=== PATIENT | male | born 1965 | race American Indian/Alaskan Native ===

== ENCOUNTER 2018-07-10 18:18 | Emergency (ER) | payer MEDICAID, OTHER ==
[2018-07-10 18:51] LABS: Basophils % (Auto) 0.6 % (0.0-1.8); Eosinophils # (Auto) 0.1 K/mm3 (0.0-0.4); Eosinophils % (Auto) 1.6 % (0.0-4.3); Hemoglobin 13.7 gm/dl (11.8-15.2); Lymphocytes # (Auto) 1.5 K/mm3 (1.2-5.4); Lymphocytes % (Auto) 40.9 % (13.4-35.0); Mean Corpuscular HGB Conc 34 % (32-34); Mean Corpuscular Volume 91 fl (84-94); Monocytes # (Auto) 0.3 K/mm3 (0.0-0.8); Monocytes % (Auto) 9.6 % (0.0-7.3); Platelet Count 289 K/mm3 (140-440); Red Blood Count 4.51 M/mm3 (3.65-5.03); Red Cell Distribution Width 13.5 % (13.2-15.2)
[2018-07-10 19:03] LABS: BUN/Creatinine Ratio 9; Blood Urea Nitrogen 8 mg/dL (9-20); Calcium 9.3 mg/dL (8.4-10.2); Hemolysis Index 17
[2018-07-10] MEDS ORDERED: KEPPRA 1,000 MG/NS 0.75% 100ML 1,000 MG/100 ML BAG IV ONE (19:19)
--- NOTE | 2018-07-10 19:23 | Emergency Department Report ---
ED Altered Mental Status HPI - General Chief Complaint: Medical Clearance Stated Complaint: POSSIBLE SEIZURE Time Seen by Provider: 07/10/18 18:38 Source: EMS Mode of arrival: Ambulatory Limitations: Other - History of Present Illness Initial Comments: Mr. Bee is a 53-year-old male who was brought by ambulance. According to EMS report given to ED nurse, he was found laying on the ground. He does have a history of seizures. Mr. Bee admits that he was confused. He stated that he was evaluated at the [facility] recently. He has been evaluated by "Mr. Estevez". He was in a group therapy. He states that the words going into his ear are different from what is coming out of his mouth. He denies any weakness. He denies any numbness. Denies suicidal or homicidal ideation. Does have a history of depression. He states that he is working on his sobriety. However he denies drug or alcohol abuse. MD Complaint: confusion -: unknown Severity: mild Context: unknown Associated Symptoms: denies other symptoms - Related Data Home Medications Medication Instructions Recorded Confirmed Last Taken Unobtainable 07/10/18 07/10/18 Unknown Allergies Allergy/AdvReac Type Severity Reaction Status Date / Time shrimp Allergy Hives Verified 07/10/18 18:21 omega 3 oil Allergy Hives Uncoded 07/10/18 18:21 ED Review of Systems ROS: Stated complaint: POSSIBLE SEIZURE Other details as noted in HPI Comment: All other systems reviewed and negative Constitutional: denies: fever, malaise Respiratory: denies: cough ED Past Medical Hx - Past Medical History Previous Medical History?: Yes Hx Seizures: Yes Hx Psychiatric Treatment: Yes (DEPRESSION) - Surgical History Additional Surgical History: PT DOESNT KNOW - Social History Smoking Status: Never Smoker Substance Use Type: None Other Social History: Lives with uncle - Medications Home Medications: Home Medications Medication Instructions Recorded Confirmed Last Taken Type Unobtainable 07/10/18 07/10/18 Unknown History ED Physical Exam - General Limitations: Other General appearance: alert, in no apparent distress, other (disheveled dirty clothing, holding Bible) - Head Head exam: Present: atraumatic, normocephalic - Eye Eye exam: Present: normal appearance - ENT ENT exam: Present: mucous membranes moist - Neck Neck exam: Present: normal inspection, full ROM - Respiratory Respiratory exam: Present: normal lung sounds bilaterally. Absent: respiratory distress, wheezes, rales, rhonchi - Cardiovascular Cardiovascular Exam: Present: regular rate, normal rhythm, normal heart sounds. Absent: systolic murmur, diastolic murmur, rubs, gallop - GI/Abdominal GI/Abdominal exam: Present: soft, normal bowel sounds. Absent: distended, tenderness, guarding - Rectal Rectal exam: Present: deferred - Extremities Exam Extremities exam: Present: normal inspection - Back Exam Back exam: Present: normal inspection - Neurological Exam Neurological exam: Present: alert, oriented X3, CN II-XII intact, normal gait. Absent: motor sensory deficit - Psychiatric Psychiatric exam: Present: normal affect, normal mood - Skin Skin exam: Present: warm, dry, intact, normal color. Absent: rash ED Course Vital Signs 07/10/18 07/10/18 18:20 19:30 Temperature 98.5 F 98.3 F Pulse Rate 80 65 Respiratory 18 16 Rate Blood Pressure 114/53 160/70 Blood Pressure 160/70 [Left] O2 Sat by Pulse 98 100 Oximetry - Lab Data Result diagrams: 07/10/18 18:30 07/10/18 18:30 Lab Results 07/10/18 07/10/18 07/10/18 Range/Units 18:30 18:30 18:30 WBC (4.5-11.0) K/mm3 RBC (3.65-5.03) M/mm3 Hgb (11.8-15.2) gm/dl Hct (35.5-45.6) % MCV (84-94) fl MCH (28-32) pg MCHC (32-34) % RDW (13.2-15.2) % Plt Count (140-440) K/mm3 Lymph % (Auto) (13.4-35.0) % [place] % (Auto) (0.0-7.3) % Eos % (Auto) (0.0-4.3) % Baso % (Auto) (0.0-1.8) % Lymph # (1.2-5.4) K/mm3 [place] # (0.0-0.8) K/mm3 Eos # (0.0-0.4) K/mm3 Baso # (0.0-0.1) K/mm3 Seg Neutrophils % (40.0-70.0) % Seg Neutrophils # (1.8-7.7) K/mm3 Sodium 139 (137-145) mmol/L Potassium 3.9 (3.6-5.0) mmol/L Chloride 100.5 (98-107) mmol/L Carbon Dioxide 26 (22-30) mmol/L Anion Gap 16 mmol/L BUN 8 L (9-20) mg/dL Creatinine 0.9 (0.8-1.5) mg/dL Estimated GFR > 60 ml/min BUN/Creatinine Ratio 9 % Glucose 81 (75-100) mg/dL Calcium 9.3 (8.4-10.2) mg/dL Salicylates < 0.3 L (2.8-20.0) mg/dL Acetaminophen < 5.0 L (10.0-30.0) ug/mL Plasma/Serum Alcohol (0-0.07) % 07/10/18 07/10/18 Range/Units 18:30 18:30 WBC 3.6 L (4.5-11.0) K/mm3 RBC 4.51 (3.65-5.03) M/mm3 Hgb 13.7 (11.8-15.2) gm/dl Hct 41.0 (35.5-45.6) % MCV 91 (84-94) fl MCH 31 (28-32) pg MCHC 34 (32-34) % RDW 13.5 (13.2-15.2) % Plt Count 289 (140-440) K/mm3 Lymph % (Auto) 40.9 H (13.4-35.0) % [place] % (Auto) 9.6 H (0.0-7.3) % Eos % (Auto) 1.6 (0.0-4.3) % Baso % (Auto) 0.6 (0.0-1.8) % Lymph # 1.5 (1.2-5.4) K/mm3 [place] # 0.3 (0.0-0.8) K/mm3 Eos # 0.1 (0.0-0.4) K/mm3 Baso # 0.0 (0.0-0.1) K/mm3 Seg Neutrophils % 47.3 (40.0-70.0) % Seg Neutrophils # 1.7 L (1.8-7.7) K/mm3 Sodium (137-145) mmol/L Potassium (3.6-5.0) mmol/L Chloride (98-107) mmol/L Carbon Dioxide (22-30) mmol/L Anion Gap mmol/L BUN (9-20) mg/dL Creatinine (0.8-1.5) mg/dL Estimated GFR ml/min BUN/Creatinine Ratio % Glucose (75-100) mg/dL Calcium (8.4-10.2) mg/dL Salicylates (2.8-20.0) mg/dL Acetaminophen (10.0-30.0) ug/mL Plasma/Serum Alcohol < 0.01 (0-0.07) % - Radiology Data Radiology results: report reviewed CT head without acute process - Medical Decision Making Mr. Bee presents with disorganized thought pattern and tangential speech without dysarthria or aphasia. No evidence of CVA on clinical exam. I do not suspect postictal state. I do suspect exacerbation of mental illness with reported treatment at the [facility]. With normal workup including serum studies CBC chemistry serum toxicology, CT head, Mr. Bee is medically clear for psychiatric care. I do not detect medical condition which will account for his current presentation. He did receive IV Keppra for previous history of seizure. I highly appreciate the assistance of risk assessor who agreed that Mr. Bee is currently stable for discharge. He did not admit to being evaluated at [facility] today but was unable to afford his medications. Dc'd home to f/u at [facility]. Critical care attestation.: If time is entered above; I have spent that time in minutes in the direct care of this critically ill patient, excluding procedure time. ED Disposition Clinical Impression: Mental health disorder, History of seizure Disposition: DC-01 TO HOME OR SELFCARE Is pt being admited?: No Does the pt Need Aspirin: No Condition: Stable Additional Instructions: Please follow up at the [facility] as discussed. Referrals: [facility] Mental Health [Outside] - [place]
--- NOTE | 2018-07-10 19:53 | Cat Scan Report ---
FINAL REPORT EXAM: CT HEAD/BRAIN WO CON HISTORY: ams hx of sz TECHNIQUE: CT was performed from the foramen magnum through the vertex in the axial plane without th e use of intravenous contrast. PRIORS: None. FINDINGS: The saab/white matter attenuation pattern is normal. There is no mass lesion or mass effect. There ar e no abnormal extra-axial fluid collections. There is no evidence of acute intracranial hemorrhage or infarct. The ventricles are of normal size and configuration. The skull and orbits are unremarkable . There is moderate patchy mucosal thickening in the right ethmoid air cells. IMPRESSION: Normal CT of the head.
[2018-07-10 21:10] VITALS: BP 160/70
== END 2018-07-11 00:09 | disposition home or self-care (01) ==
LOC: ED 18:18
DX: F32.9 Major depressive disorder, single episode, unspecified (principal); R56.9 Unspecified convulsions; R41.0 Disorientation, unspecified; Z91.013 Allergy to seafood; Z91.018 Allergy to other foods
CPT/HCPCS: 36415; 70450; 80048; 85025; 96365; 96366; 99285; G0480; J1953; 80320

== ENCOUNTER 2018-08-13 09:56 | Emergency (ER) | payer SELFPAY | END 2018-08-13 09:59 | disposition left against medical advice (07) | LOC: ED 09:56 | DX: Z53.21 Procedure and treatment not carried out due to patient leaving prior to being seen by health care provider (principal) ==

== ENCOUNTER 2018-10-08 10:10 | Emergency (ER) | payer MEDICAID | END 2018-10-08 13:53 | LOC: ED 10:10 → MERGE 10:10 → ED 13:53 | DX: Z00.8 Encounter for other general examination (principal); Z53.21 Procedure and treatment not carried out due to patient leaving prior to being seen by health care provider ==

== ENCOUNTER 2018-11-03 23:58 | Emergency (ER) | payer MEDICAID ==
[2018-11-04 00:21] VITALS: BP 128/69
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
== END 2018-11-04 02:49 | disposition home or self-care (01) ==
LOC: ED 23:58 → MERGE 23:58 → ED 11-04 02:49
DX: M19.042 Primary osteoarthritis, left hand (principal); M19.041 Primary osteoarthritis, right hand; G89.29 Other chronic pain; I10 Essential (primary) hypertension; I25.2 Old myocardial infarction; E11.9 Type 2 diabetes mellitus without complications; J45.909 Unspecified asthma, uncomplicated; Z86.73 Personal history of transient ischemic attack (TIA), and cerebral infarction without residual deficits; Z88.0 Allergy status to penicillin; Z79.899 Other long term (current) drug therapy
CPT/HCPCS: 99282

== ENCOUNTER 2018-11-20 05:02 | Emergency (ER) | payer MEDICAID ==
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
[2018-11-20 09:21] LABS: Basophils % (Auto) 0.6 % (0.0-1.8); Eosinophils # (Auto) 0.1 K/mm3 (0.0-0.4); Eosinophils % (Auto) 1.9 % (0.0-4.3); Hematocrit 39.3 % (35.5-45.6); Hemoglobin 13.4 gm/dl (11.8-15.2); Lymphocytes # (Auto) 1.2 K/mm3 (1.2-5.4); Lymphocytes % (Auto) 38.7 % (13.4-35.0); Mean Corpuscular HGB Conc 34 % (32-34); Mean Corpuscular Volume 92 fl (84-94); Monocytes # (Auto) 0.3 K/mm3 (0.0-0.8); Platelet Count 236 K/mm3 (140-440); Red Blood Count 4.29 M/mm3 (3.65-5.03); Red Cell Distribution Width 14.2 % (13.2-15.2)
[2018-11-20 09:52] LABS: Alanine Aminotransferase 29 units/L (7-56); BUN/Creatinine Ratio 13; Blood Urea Nitrogen 12 mg/dL (9-20); Calcium 9.1 mg/dL (8.4-10.2); Hemolysis Index 14
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
[2018-11-20] MEDS ORDERED: INVEGA PO SCH (14:00)
[2018-11-20] MEDS ORDERED: NACL 0.9% 1000 ML 1,000 ML IV ONE (14:31)
[2018-11-20 16:50] VITALS: BP 113/61
== END 2018-11-20 17:21 ==
LOC: ED 05:02 → MERGE 05:02 → EEVIPCON 05:02 → ED 17:05
DX: F23 Brief psychotic disorder (principal); R74.8 Abnormal levels of other serum enzymes; F41.9 Anxiety disorder, unspecified; I10 Essential (primary) hypertension; F31.9 Bipolar disorder, unspecified; E11.9 Type 2 diabetes mellitus without complications; J45.909 Unspecified asthma, uncomplicated; Z88.0 Allergy status to penicillin; Z79.1 Long term (current) use of non-steroidal anti-inflammatories (NSAID); Z79.899 Other long term (current) drug therapy; Z86.73 Personal history of transient ischemic attack (TIA), and cerebral infarction without residual deficits
CPT/HCPCS: 36415; 80053; 82550; 82962; 85025; 99285; G0480; J7030; 80320

== ENCOUNTER 2018-11-20 14:26 | Inpatient (IN) | payer MEDICAID ==
[2018-11-20] MEDS ORDERED: ATIVAN IM PRN (18:48)
[2018-11-20] MEDS ORDERED: HALDOL IM PRN (18:51)
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
[2018-11-21] MEDS ORDERED: THORAZINE PO PRN (08:48)
[2018-11-21 09:17] LABS: Chol/HDL Ratio 3.4 %
[2018-11-21] MEDS ORDERED: NON-FORMULARY (Cholecalciferol (Vitamin D3) [Vitamin D3] 1,000 UNIT) PO SCH (10:00)
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
[2018-11-21] MEDS: HALDOL PO SCH ×2 (11:08→22:52)
[2018-11-21] MEDS: VITAMIN D3 PO SCH (11:08)
[2018-11-21] MEDS ORDERED: TYLENOL PO PRN (19:18)
[2018-11-21] MEDS: THORAZINE PO SCH (22:52)
[2018-11-22] MEDS: VITAMIN D3 PO SCH (09:12)
[2018-11-22] MEDS: HALDOL PO SCH (09:12)
--- NOTE | 2018-11-22 10:13 | Progress Note ---
Subjective Date of service: 11/22/18 Principal diagnosis: Paranoid Schizophrenia Subjective Comment: The patient is paranoid, disorganized and unable to care for self. He believes that he is being chased and shot at by people unknown to him. He is compliant with meds and denies side effects. Objective - Criteria for Continued Treatment Criteria for Continued Treatment: Improving Level of Functioning, Improving Treatment / Medication Compliance, Confronting Denial of Illness, Stablizing Level of Functioning, Improving Emotional/Socia, Decreasing Frequency of Hospitalization - Mental Status Mental Status: Alert - Objective Observation Participation Level: Moderate Assessment and Plan - Patient Problems (1) Paranoid schizophrenia Current Visit: Yes Status: Acute Plan to address problem: Patient will be admitted for inpatient psychiatric evaluation, medication adjustment and close monitoring The patient's behavior, mood, sleep and appetite will be closely monitored. Patient will be enrolled in individual and group therapeutic sessions and encouraged to attend. Patient will be provided with a safe and structured environment. Patient's physical health needs will be addressed by the Hospitalist. Social Assessment will be completed and the Security Orderly will work with patient and family to ensure a suitable and safe disposition Medication adjustment will be made as clinically indicated Continue Haldol 5mg bid. Haldol Decanoate Continue Thorazine 100mg qhs The patient agreed on the treatment plan, understood the risk, benefit, alternative treatment, potential consequence of no treatment, and gave informed consent.
[2018-11-22] MEDS: THORAZINE PO SCH ×2 (21:54→21:56)
[2018-11-23] MEDS: HALDOL PO SCH ×3 (00:36→21:51)
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
[2018-11-23] MEDS: VISINE-A OU PRN (12:11)
[2018-11-23] MEDS: VITAMIN D3 PO SCH (12:14)
[2018-11-23] MEDS: THORAZINE PO SCH (21:52)
[2018-11-24] MEDS: VISINE-A OU PRN (10:48)
[2018-11-24] MEDS: VITAMIN D3 PO SCH (10:49)
[2018-11-24] MEDS: COGENTIN PO SCH ×2 (10:54→21:40)
[2018-11-24] MEDS: HALDOL PO SCH (10:55)
[2018-11-24] MEDS: IBUPROFEN PO PRN ×2 (11:09→17:16)
--- NOTE | 2018-11-24 19:17 | Progress Note ---
Subjective Date of service: 11/24/18 Principal diagnosis: Paranoid Schizophrenia Subjective Comment: The patient is improving. He denies being paranoid, suicidal or homicidal. He denies hallucinations. Nursing staff reports that he is more interactive with staffs and other patients. He is complains of stiff neck which started last night. Objective - Criteria for Continued Treatment Criteria for Continued Treatment: Improving Level of Functioning, Stablizing Level of Functioning, Improving Emotional/Socia - Mental Status Mental Status: Alert - Objective Observation Participation Level: Full Assessment and Plan - Patient Problems (1) Paranoid schizophrenia Current Visit: Yes Status: Acute Plan to address problem: Patient will be admitted for inpatient psychiatric evaluation, medication adjustment and close monitoring The patient's behavior, mood, sleep and appetite will be closely monitored. Patient will be enrolled in individual and group therapeutic sessions and encouraged to attend. Patient will be provided with a safe and structured environment. Patient's physical health needs will be addressed by the Hospitalist. Social Assessment will be completed and the Insole And Heel Stiffener will work with patie nt and family to ensure a suitable and safe disposition Medication adjustment will be made as clinically indicated Will discontinue Haldol 5mg bid. Start Cogentin 1mg bid for EPSE Haldol Decanoate to be resumed at out-patient Continue Thorazine 100mg qhs The patient agreed on the treatment plan, understood the risk, benefit, alternative treatment, potential consequence of no treatment, and gave informed consent.
[2018-11-24 20:07] VITALS: BP 106/60
[2018-11-24] MEDS: THORAZINE PO SCH (21:40)
[2018-11-25] MEDS: VISINE-A OU PRN (05:00)
--- NOTE | 2018-11-25 09:07 | Discharge Summary ---
Providers - Providers Date of Admission: 11/20/18 14:57 Date of discharge: 11/25/18 Attending physician: BAO BABCOCK MD [facility] Reason for admission: Paranoid delusions, confused, disorganized and unable to care for self. Condition: Good Hospital course: The patient was provided inpatient psychiatric treatment with safe and supportive environment, group therapy, individual counseling, psychiatric medication, medication adjustment, adverse effect monitor, medical evaluation, medical treatment, social service assessment, family/social support meeting, placement assessment and psycho-education. The patients mood, anxiety, thoughts, stress management skill, cognition, impulse/anger control, motivation, understanding of disease, compliance to treatment and appreciation on family/social support are improved and stabilized. At the time of discharge, the patient had no suicidal ideas, no homicidal ideas, no aggressive thoughts, no endangering behavior and no debilitating adverse effects. The patient agreed on the treatment plan, understood the risk, benefit, alternative treatment, potential consequence of no treatment, and gave informed consent. The patient was advised to be compliant with medications, not to use drugs and not to drink alcohol. The patient understands that if suicidal ideas, homicidal ideas, or any endangering thoughts arise, the patient should immediately seek for emergent assistance including but not limited to crisis hot line and emergency room. Follow up with out-patient Psychiatrist and PCP within 14 - 21 days of discharge. Disposition: - TO HOME OR SELFCARE Time spent for discharge: 35 mins Allergies/Adverse Reactions: Allergies Penicillins Allergy (Verified 06/20/17 21:34) Rash Vital Signs: Last Vital Signs Temp 97.7 F 11/24/18 19:50 Pulse 71 11/24/18 19:50 Resp 18 11/24/18 19:50 BP 106/60 11/24/18 19:50 Pulse Ox 99 11/24/18 19:50 Last Lab: Laboratory Last Values POC Glucose 119 (70-105) H 11/20/18 21:52 5.8 % (4-6) 11/21/18 08:24 Triglycerides 41 mg/dL (2-149) 11/21/18 08:24 Cholesterol 150 mg/dL (50-199) 11/21/18 08:24 108 mg/dL (50-130) 11/21/18 08:24 44 mg/dL (40-59) 11/21/18 08:24 3.40 % 11/21/18 08:24 - Discharge Diagnoses (1) Paranoid schizophrenia Status: Acute Core Measure Documentation - Palliative Care Palliative Care/ Comfort Measures: Not Applicable - Core Measures Any of the following diagnoses?: none Exam - Constitutional Vitals: Temp Pulse Resp BP Pulse Ox 97.7 F 71 18 106/60 99 11/24/18 19:50 11/24/18 19:50 11/24/18 19:50 11/24/18 19:50 11/24/18 19:50 General appearance: Present: no acute distress, well-nourished - EENT Eyes: Present: PERRL, EOM intact ENT: hearing intact, clear oral mucosa - Neck Neck: Present: supple, normal ROM - Respiratory Respiratory effort: normal Plan Activity: no restrictions Weight Bearing Status: Full Weight Bearing Diet: regular Follow up with: BOBBY CONSTANTINO MD [Primary Care Provider] - 7 Days Prescriptions: Benztropine [Cogentin] 0.5 mg PO BID #60 tablet chlorproMAZINE [Thorazine] 50 mg PO HS #60 tablet Naphazoline/Phenira 0.025/0.3% [Visine-A] 2 drops OU Q6H PRN #1 bottle PRN Reason: Itching
[2018-11-25] MEDS: COGENTIN PO SCH (10:27)
[2018-11-25] MEDS: VITAMIN D3 PO SCH (10:28)
== END 2018-11-25 16:25 | disposition home or self-care (01) | DRG 885 ==
LOC: 3A 14:26 → UNDOADMIN 14:26 → 5A 14:57 → MERGE 14:57
PROVIDERS: ADMIT Psychiatry & Neurology Psychiatry; ATTEND Psychiatry & Neurology Psychiatry
DX: F20.0 Paranoid schizophrenia (principal); I10 Essential (primary) hypertension; G40.909 Epilepsy, unspecified, not intractable, without status epilepticus; F17.200 Nicotine dependence, unspecified, uncomplicated; Z88.0 Allergy status to penicillin; Z79.899 Other long term (current) drug therapy
CPT/HCPCS: 36415; 80053; 80061; 80320; 82550; 82962; 83036; 85025; 99285; G0378; G0480; J7030; Q0161

== ENCOUNTER 2020-03-15 11:51 | Emergency (ER) | payer MEDICAID ==
[2020-03-15 12:21] VITALS: BP 126/75
== END 2020-03-15 17:23 | disposition left against medical advice (07) ==
LOC: ED 11:51
DX: M79.602 Pain in left arm (principal); Z53.21 Procedure and treatment not carried out due to patient leaving prior to being seen by health care provider